=== PATIENT | female | born 1980 | race American Indian/Alaskan Native ===

== ENCOUNTER 2018-01-01 08:04 | Day surgery (SDC) | payer MEDICAID, OTHER ==
[~2018-01-01 08:04] MED LIST: Bupivacaine 0.5%/EPINEPHrine 1:200,000 10 ML SDV ONE; Lactated Ringers 1,000 ML IV SCH; Lidocaine 1% 30 ML SDV ONE; Sodium Chloride 0.9% 10 ML Syringe FLUSH PRN; ceFAZolin 1 GM in Premix Bag 1 BAG IV ONE
[2018-01-01] MEDS ORDERED: Propofol 1,000 MG/100 ML SDV IV ONE (08:05)
[2018-01-01] MEDS ORDERED: fentaNYL 100 MCG/2 ML SDV IV ONE (08:05)
[2018-01-01] MEDS ORDERED: Midazolam 1 MG/ML 2 ML SDV IV ONE (08:05)
[2018-01-01] MEDS ORDERED: Ketorolac 30 MG/ML SDV IVPUSH ONE (08:05)
[2018-01-01 08:39] LABS: CHLORIDE,CL 101 mmol/L (101-111); SODIUM,NA 135 mmol/L (135-145)
[2018-01-01] MEDS ORDERED: Bupivacaine 0.5%/EPINEPHrine 1:200,000 10 ML SDV INJECT ONE ×2 (09:28→10:30)
[2018-01-01] MEDS ORDERED: Lidocaine 1% 30 ML SDV INJECT ONE ×2 (09:28→10:30)
[2018-01-01] MEDS ORDERED: Acetaminophen/oxyCODONE 325-5 MG Tab PO PRN (11:00)
--- NOTE | 2018-01-01 11:04 | PCM.OPNOTE ---
- General Post-Op/Procedure Note Date of Surgery/Procedure: 01/01/18 Operative Procedure(s): right foot first metatarsal bunionectomy with hardware Pre Op Diagnosis: right foot painful bunion Post-Op Diagnosis: tawanna Anesthesia Technique: Local, MAC Primary Surgeon: Sharmin Alva Anesthesia Provider: Jose Miguel Cardenas EBL in mLs: 5 Complications: none Condition: Good Free Text/Narrative:: Pt tolerated procedure well and was transported to recovery with vascular status intact to right foot. TT 56 mins. [place] 3.0 cannulated screws placed at first metatarsal. Well padded compression dressing applied.
[2018-01-01 13:02] VITALS: BP 144/74
--- NOTE | 2018-01-01 16:44 | OR ---
DATE: 01/01/2018 PREOPERATIVE DIAGNOSIS: Right foot painful bunion. POSTOPERATIVE DIAGNOSIS: Right foot painful bunion. PROCEDURE PERFORMED: Right foot first metatarsal osteotomy/bunionectomy with hardware fixation. ANESTHESIA: Local MAC with preoperative local block of 10 mL 1:1 mixture 1% lidocaine plain and 0.5% Marcaine plain. TOURNIQUET TIME: 56 minutes. Pneumatic ankle tourniquet. ESTIMATED BLOOD LOSS: Minimal. SPECIMEN REMOVED: None. COMPLICATIONS: None. INDICATIONS: Saloni is a 37-year-old female, who presents to the clinic for bilateral foot pain, much worse on the right foot. She reports she has had very painful bunions for many years now, she has been seeing [facility] for the bunions for a few years and saw a doctor out there. He did give her wider shoes, bunion padding, toe spacers, and inserts with no relief. She works on her feet all day and the pain increases with being on her foot. She wants to go ahead with the surgical correction of the bunion. She is a diabetic. 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 The patient voiced good understanding of proposed procedure and possible complications and elects to have surgery at this time. DESCRIPTION OF PROCEDURE: The patient was taken to the operating room lying in the supine position. After adequate anesthesia induction as described above, the right foot was prepped and draped in the usual sterile fashion. A pneumatic ankle tourniquet was then inflated to 225 mmHg. Attention was then directed to the dorsum of the right foot first metatarsophalangeal joint where an approximately 5 cm linear incision was made. Sharp and blunt dissection were performed down to the level of the joint with care to gently retract all neurovascular bundles. An inverted L-capsulotomy was made and the capsule was reflected to expose the distal first metatarsal. A hypertrophic medial eminence was noted and resected with a sagittal saw. Blunt dissection was performed in the first interspace to the level of the fibular sesamoid and the adductor hallucis tendon was transected from its attachment due to the total being significantly tight at the lateral area. This was released. A sagittal saw was used to make a [place]-type osteotomy with a long dorsal arm angulated in a fashion that would allow maintenance of the length upon lateral translation of the capital fragment. The capital fragment was then transposed laterally approximately 7 mm and impacted to bring the hallux in a near rectus alignment. A K-wire from the 3.0 [place] cannulated screw set was used as temporary fixation x2. Two partially-threaded cannulated 3.0 [place] screws were then placed across the osteotomy site and a temporary fixation was removed. Fluoroscopy was used throughout this procedure to verify proper reduction of the bunion deformity and also proper screw fixation and placement. The osteotomy site was noted to be stable with valgus and varus forces applied with fluid range of motion to the first MTPJ, the first MTPJ looked healthy with no articular defects present. The surgical site was flushed with copious amounts of sterile saline. A medial capsulorrhaphy was performed, and capsular closure was completed with 3-0 Vicryl. Skin closure was completed with 4-0 nylon. The hallux was noted to be in near rectus alignment at this time. The area was then dressed with Xeroform to the incision site, fluffs, Webril, and an Jass wrap. She tolerated the procedure and anesthesia well and left the operating room for recovery with vital signs stable and in good condition with vascular status intact to the right foot as noted by immediate hyperemia to all digits upon deflation of the ankle tourniquet. Total tourniquet time was 56 minutes. She was placed in a Cam boot with crutches. She was then discharged home when she met hospital discharge requirements. [facility] /[id number]
--- NOTE | 2018-01-02 15:45 | EKG ---
01/01/2018 - SCOTTIE DE LA VEGA - A 12-lead EKG shows normal sinus rhythm with heart rate of 68, MT interval of . No significant ST elevation or ST depression noted on this 12-lead EKG. [facility] /[id number]
== END 2018-01-01 12:30 | disposition home or self-care (01) ==
LOC: DL.SDS 08:04
PROVIDERS: ATTEND Podiatrist
DX: M21.611 Bunion of right foot (principal); I10 Essential (primary) hypertension; K21.9 Gastro-esophageal reflux disease without esophagitis; E78.2 Mixed hyperlipidemia; E55.9 Vitamin D deficiency, unspecified; E11.40 Type 2 diabetes mellitus with diabetic neuropathy, unspecified; F32.9 Major depressive disorder, single episode, unspecified; Z87.891 Personal history of nicotine dependence; Z88.8 Allergy status to other drugs, medicaments and biological substances
CPT/HCPCS: 36415; 80048; 81025; 85025; C1713; J0690; J1885; J2250; J2704; J3010; J7120

== ENCOUNTER 2018-03-26 06:57 | Day surgery (SDC) | payer MEDICAID, OTHER ==
[~2018-03-26 06:57] MED LIST changes: +Bupivacaine 0.5% 30 ML SDV ONE; -Bupivacaine 0.5%/EPINEPHrine 1:200,000 10 ML SDV ONE; -ceFAZolin 1 GM in Premix Bag 1 BAG IV ONE
[2018-03-26] MEDS ORDERED: Bupivacaine 0.5% 30 ML SDV INJECT ONE ×5 (06:58→09:57)
[2018-03-26] MEDS ORDERED: Propofol 200 MG/20 ML SDV IV ONE (06:58)
[2018-03-26] MEDS ORDERED: Lidocaine 1% 30 ML SDV INJECT ONE ×5 (06:58→09:57)
[2018-03-26] MEDS ORDERED: fentaNYL 100 MCG/2 ML SDV IV ONE (06:58)
[2018-03-26] MEDS ORDERED: Midazolam 1 MG/ML 2 ML SDV IV ONE (06:58)
[2018-03-26] MEDS ORDERED: Ondansetron 4 MG/2 ML SDV IV ONE (06:58)
[2018-03-26] MEDS ORDERED: ceFAZolin 1 GM in Premix Bag 1 BAG IV ONE (07:30)
[2018-03-26] MEDS ORDERED: ceFAZolin 2 GM in Premix Bag 1 BAG IV ONE (08:04)
[2018-03-26] MEDS ORDERED: Acetaminophen/oxyCODONE 325-5 MG Tab PO PRN (10:12)
--- NOTE | 2018-03-26 10:14 | PCM.OPNOTE ---
- General Post-Op/Procedure Note Date of Surgery/Procedure: 03/26/18 Operative Procedure(s): left foot first metatarsal osteotomy/bunionectomy Pre Op Diagnosis: left foot painful bunion Post-Op Diagnosis: tawanna Anesthesia Technique: Local, MAC Primary Surgeon: Sharmin Alva Anesthesia Provider: Bryce Weaver EBL in mLs: 5 Complications: none Condition: Good Free Text/Narrative:: Pt tolerated procedure well and was transported to recovery with vascular status intact to left foot. TT 54 mins. Well padded compression dressing applied. [place] 3.0 cannulated screws placed.
[2018-03-26 11:10] VITALS: BP 141/77
--- NOTE | 2018-03-26 13:08 | OR ---
DATE: 03/26/2018 PREOPERATIVE DIAGNOSIS: Painful left foot bunion deformity. POSTOPERATIVE DIAGNOSIS: Painful left foot bunion deformity. PROCEDURE PERFORMED: Left foot first metatarsal osteotomy/bunionectomy with hardware fixation. ANESTHESIA: Local MAC with preoperative local block of 10 mL 1:1 mixture of 1% lidocaine plain and 0.5% Marcaine plain. TOURNIQUET TIME: Pneumatic ankle tourniquet, 54 minutes. ESTIMATED BLOOD LOSS: Minimal. SPECIMEN: None. COMPLICATIONS: None. INDICATIONS: Saloni is a 38-year-old female who presents for painful bunion deformity on her left foot. I had recently done a bunionectomy on her right foot. She states that foot is completely healed and doing great. She is back to walking in regular shoes without any pain or swelling. She would like to have the same procedure done on her left foot. That foot has been painful for a few years now and gradually worsening. She has exhausted conservative options for this. She is diabetic. X-rays brought in on a disk from [facility] reveal left foot medially deviated first metatarsal with IM angle of approximately 11 degrees. She does have a significant metatarsus adductus angle. The patient voiced good understanding of the proposed procedure and possible complications and elects to have surgery at this time. DESCRIPTION OF PROCEDURE: The patient was taken to the operating room lying in supine position. After adequate anesthesia induction as described above, the left foot was prepped and draped in the usual sterile fashion. A pneumatic ankle tourniquet was inflated to 225 mmHg. Attention was then directed to the dorsal aspect of the left first metatarsophalangeal joint, where an approximately 6 cm linear incision was made. Sharp and blunt dissection was performed down to the level of the joint capsule with care to gently retract all neurovascular bundles. An inverted L capsulotomy was made, and the capsule was reflected to expose the distal first metatarsal. A hypertrophic medial eminence was noted at this time and was resected with a sagittal saw. The sagittal saw was then used to make a chev[place]-type osteotomy angulated in a fashion that would allow plantar displacement and maintenance of length with lateral transposition of the capital fragment. The capital fragment was then laterally transposed 6 mm and impacted to bring the hallux in a near rectus alignment. K-wires from the Filtr[place] cannulated screw set were used as temporary fixation. Two partially- threaded cannulated 3.0 [place] screws were then placed across the osteotomy site. The temporary fixation was removed. The osteotomy site was noted to be stable with axial, valgus, and varus forces applied with fluid range of motion of the first MTPJ. The first MTPJ appeared healthy without any defects present. Fluoroscopy was used throughout the procedure to verify adequate reduction of the deformity as well as proper placement of screws and screw fixation. The area was then irrigated with copious amounts of sterile saline. A medial capsulorrhaphy was performed. Capsular closure was completed with 2-0 Vicryl, and skin closure was completed with 4-0 nylon. The hallux was noted to be in a near rectus alignment at this time. The area was dressed with Xeroform to the incision site, fluffs, Webril, and an Jass wrap. She was placed on crutches and a Cam boot. She tolerated the procedure well and left the operating room for recovery with vital signs stable in good condition with vascular status intact to the left foot as noted by immediate hyperemia to all digits upon deflation of the ankle tourniquet. The patient was then discharged home when she met hospital discharge requirements. [facility] /[id number]
== END 2018-03-26 11:25 | disposition home or self-care (01) ==
LOC: DL.SDS 06:57
PROVIDERS: ATTEND Podiatrist
DX: M21.612 Bunion of left foot (principal); M20.62 Acquired deformities of toe(s), unspecified, left foot; I10 Essential (primary) hypertension; K21.9 Gastro-esophageal reflux disease without esophagitis; G47.00 Insomnia, unspecified; E11.42 Type 2 diabetes mellitus with diabetic polyneuropathy; F32.9 Major depressive disorder, single episode, unspecified; E78.2 Mixed hyperlipidemia; H52.13 Myopia, bilateral; H52.223 Regular astigmatism, bilateral; E55.9 Vitamin D deficiency, unspecified; Z79.4 Long term (current) use of insulin; Z88.8 Allergy status to other drugs, medicaments and biological substances; Z87.891 Personal history of nicotine dependence
CPT/HCPCS: 28296; 82962; C1713; J0690; J2250; J2405; J2704; J3010; J7120

== ENCOUNTER 2019-07-27 06:25 | Day surgery (SDC) | payer OTHER ==
[~2019-07-27 06:25] MED LIST changes: -Bupivacaine 0.5% 30 ML SDV ONE; -Lactated Ringers 1,000 ML IV SCH; -Lidocaine 1% 30 ML SDV ONE; +Midazolam 1 MG/ML 2 ML SDV ONE; +fentaNYL 100 MCG/2 ML SDV ONE
[2019-07-27] MEDS ORDERED: Midazolam 1 MG/ML 2 ML SDV IV ONE (06:26)
[2019-07-27] MEDS ORDERED: fentaNYL 100 MCG/2 ML SDV IV ONE (06:26)
[2019-07-27] MEDS: Dextrose 5%-0.45% NaCl 1,000 ML IV SCH (07:09)
[2019-07-27] MEDS: fentaNYL 100 MCG/2 ML SDV IV ONE ×2 (07:16→07:17)
[2019-07-27] MEDS: Midazolam 1 MG/ML 2 ML SDV IV ONE ×2 (07:17→07:18)
[2019-07-27 09:22] VITALS: BP 132/60
--- NOTE | 2019-07-27 12:48 | OR ---
DATE: 07/27/2019 PROCEDURES: Esophagogastroduodenoscopy and multiple pinch biopsies. INSTRUMENT USED: GIF-HQ190 Olympus video panendoscope. PREMEDICATIONS: Fentanyl 1 mcg intravenous, Versed 2 mg intravenous, nasal O2 cannula. The procedure was done with pulse oximetry, BP recording, and landscape horticulture instructor. INDICATION: Diabetic patient, on multiple medications including PPI long-term with persistent upper abdominal pain and dyspepsia, unexplained, not responsive to present measures. Esophagogastroduodenoscopy is performed for detection of any active erosive lesions, [place] esophagus and/or malignancy also under consideration, H. pylori status to be determined, endoscopic hemostasis therapy if needed. PROCEDURE IN DETAIL: The scope was passed with ease. Adequate visualization of the esophagus was made from proximal to distal areas. No upper esophageal lesions identified. No distal esophageal stricture. No uphill or downhill esophageal varices. No Rosette-Villeda tear. No evidence of erosive esophagitis by [place] criteria. No esophageal polyp or tumor mass identified. Z-line was seen at around 39 cm distal to the oral verge, configuration consistent with grade 1 by ZAP classification. No esophageal polyps or tumor masses identified. Gastric fundus examination by retroflexion showed no polypoid lesions. No proximal gastric varices noted. No gastric ulcer, malignant mass, or vascular ectasia identified. Duodenal bulb showed no ulcer. Visualized second part of the duodenum was unremarkable. Multiple pinch biopsies were taken from the gastric antrum and proximal body and sent for PyloriTek test for H. pylori, and if negative in an hour, the tissue is to be sent for histopathology. No bleeding was noted from any of the visualized areas at the completion of examination. Photographs were taken of the duodenal bulb, gastric antrum, fundus, and distal esophagus. IMPRESSION: Normal study. The patient tolerated the procedure well. [facility] /[id number]
--- NOTE | 2019-07-27 13:51 | LETTER ---
07/27/2019 RE: SCOTTIE DE LA VEGA : 1980 [address] [facility] [address] [place] [address] Vargas: Ms. Scottie Oakes had esophagogastroduodenoscopy done this morning and she tolerated the procedure well. I herewith send a copy of the endoscopy note and photographs for your review. Thank you. Sincerely, [facility] /[id number]
== END 2019-07-27 09:25 | disposition home or self-care (01) ==
LOC: DL.ENDO 06:25
PROVIDERS: ATTEND Internal Medicine Gastroenterology
DX: K29.50 Unspecified chronic gastritis without bleeding (principal); I10 Essential (primary) hypertension; E11.9 Type 2 diabetes mellitus without complications; E78.5 Hyperlipidemia, unspecified; E55.9 Vitamin D deficiency, unspecified; E66.01 Morbid (severe) obesity due to excess calories; F32.9 Major depressive disorder, single episode, unspecified; G47.00 Insomnia, unspecified; Z79.899 Other long term (current) drug therapy; Z68.43 Body mass index [BMI] 50.0-59.9, adult
CPT/HCPCS: 43239; 87077; J2250; J3010; J7042

== ENCOUNTER 2020-08-15 00:05 | Emergency (ER) | payer OTHER ==
[2020-08-15 00:24] VITALS: BP 172/89; PULSE 100
--- NOTE | 2020-08-15 00:42 | EDM.PDOC ---
ED HPI GENERAL MEDICAL PROBLEM - General Chief Complaint: Upper Extremity Injury/Pain Stated Complaint: SHOULDERS DOWN BOTH SIDES SWELLING HURTS Time Seen by Provider: 08/15/20 00:20 Source of Information: Reports: Patient History Limitations: Reports: No Limitations - History of Present Illness INITIAL COMMENTS - FREE TEXT/NARRATIVE: ED with c/o bilateral shoulders arms to wrists, Admits moving and carrying heavy boxes this weekend cleaning out a basement. Feel hands swollen. No fever chills or other body aches. Admits does not normally do that type of activity level. Today, mostly in bed. Bilateral Arm Pain Score (Numeric/FACES): 7 - Related Data Allergies Allergy/AdvReac Type Severity Reaction Status Date / Time lisinopril AdvReac Cough Verified 08/15/20 00:24 Home Meds: Home Meds Aspirin [Pat Chewable Aspirin] 81 mg PO DAILY 12/31/14 [History] Insulin Aspart [NovoLOG] 35 units SQ TID 12/31/14 [History] Insulin Detemir [Levemir] 50 units SQ BID 12/31/14 [History] Losartan [Cozaar] 25 mg PO DAILY 12/31/14 [History] metFORMIN [Glucophage XR] 1,000 mg PO BID 12/31/14 [History] Cholecalciferol (Vitamin D3) [Vitamin D3] 1,000 units PO DAILY 12/30/17 [History] Ibuprofen 600 mg PO QID PRN 12/31/17 [History] Omeprazole 20 mg PO DAILY 07/23/19 [History] glipiZIDE [Glucotrol XL] 2.5 mg PO DAILY 07/23/19 [History] Past Medical History - Past Health History Medical/Surgical History: Denies Medical/Surgical History HEENT History: Reports: None, Impaired Vision Other HEENT History: bilateral myopia, astigmatism Cardiovascular History: Reports: High Cholesterol, Hypertension Respiratory History: Reports: None Gastrointestinal History: Reports: GERD, Other (See Below) Other Gastrointestinal History: LACTOSE INTOLERANCE Genitourinary History: Reports: None PRODUCTION GRADER History: Reports: None, Spontaneous Musculoskeletal History: Reports: Arthritis Other Musculoskeletal History: tenosunovitis of wrist, bilateral s/p carpal tunnel release Neurological History: Reports: Neuropathy, Diabetic Other Neuro History: insomnia Psychiatric History: Reports: Depression Endocrine/Metabolic History: Reports: Diabetes, Type II, Obesity/BMI 30+, Vitamin D Deficiency Hematologic History: Reports: None Immunologic History: Reports: None Oncologic (Cancer) History: Reports: None Dermatologic History: Reports: Eczema Other Dermatologic History: dry skin dermatitis - Infectious Disease History Infectious Disease History: Reports: Chicken Pox - Past Surgical History Head Surgeries/Procedures: Reports: None HEENT Surgical History: Reports: None Cardiovascular Surgical History: Reports: None Respiratory Surgical History: Reports: None GI Surgical History: Reports: Cholecystectomy, EGD Female Surgical History: Reports: None Musculoskeletal Surgical History: Reports: Arthroscopic Knee, Carpal Tunnel Social & Family History - Family History Family Medical History: Noncontributory - Tobacco Use Smoking Status *Q: Never Smoker Second Hand Smoke Exposure: No - Caffeine Use Caffeine Use: Reports: Energy Drinks Caffeine Use Comment: 2 ENERGY DRINKS DAILY. RARE SODA - Recreational Drug Use Recreational Drug Use: No - Living Situation & Occupation Living situation: Reports: with Significant Other Occupation: Unemployed Review of Systems - Review of Systems Review Of Systems: See Below ED EXAM, GENERAL - Physical Exam Exam: See Below Exam Limited By: No Limitations General Appearance: Alert, Mild Distress, Obese Eye Exam: Bilateral Eye: EOMI Ears: Normal External Exam Nose: Normal Inspection Throat/Mouth: Normal Inspection Head: Atraumatic, Normocephalic Neck: Normal Inspection, Full Range of Motion Respiratory/Chest: No Respiratory Distress, Lungs Clear, Normal Breath Sounds Cardiovascular: Regular Rate, Rhythm Extremities: Other (generalized tenderness upper extremities bilaterally greater with palpation ofver shoulders and elbow. No notable swelling to hands. ) Psychiatric: Flat Affect Skin Exam: Warm, Dry, Intact, Normal Color. No: Increased Warmth, Rash Course - Vital Signs Last Recorded V/S: Last Vital Signs Temp 98.6 F 08/15/20 00:20 Pulse 100 08/15/20 00:20 Resp 18 08/15/20 00:20 BP 172/89 H 08/15/20 00:20 Pulse Ox 97 08/15/20 00:20 Departure - Departure Time of Disposition: 00:38 Disposition: Home, Self-Care 01 Condition: Good Clinical Impression: Muscle strain - Discharge Information *PRESCRIPTION DRUG MONITORING PROGRAM REVIEWED*: No *COPY OF PRESCRIPTION DRUG MONITORING REPORT IN PATIENT TOMY: No Instructions: Shoulder Pain, [id number], Climber's Elbow Referrals: PCP,None [Primary Care Provider] - Forms: ED Department Discharge, ED Return to Work/School Form Additional Instructions: alternate tylenol and ibuprofen every 4 hours as needed icy hot / bengay as needed clinic follow up if not improving Sepsis Event Note (ED) - Evaluation Sepsis Screening Result: No Definite Risk - Focused Exam Vital Signs: Vital Signs Temp Pulse Resp BP Pulse Ox 08/15/20 00:20 98.6 F 100 18 172/89 H 97
== END 2020-08-15 00:44 | disposition home or self-care (01) ==
LOC: DL.ED 00:05
DX: S46.912A Strain of unspecified muscle, fascia and tendon at shoulder and upper arm level, left arm, initial encounter (principal); S46.911A Strain of unspecified muscle, fascia and tendon at shoulder and upper arm level, right arm, initial encounter; I10 Essential (primary) hypertension; K21.9 Gastro-esophageal reflux disease without esophagitis; M19.90 Unspecified osteoarthritis, unspecified site; E11.40 Type 2 diabetes mellitus with diabetic neuropathy, unspecified; E66.9 Obesity, unspecified; Z68.43 Body mass index [BMI] 50.0-59.9, adult; Z88.8 Allergy status to other drugs, medicaments and biological substances; Z79.82 Long term (current) use of aspirin; Z79.4 Long term (current) use of insulin; Z79.899 Other long term (current) drug therapy; X50.9XXA Other and unspecified overexertion or strenuous movements or postures, initial encounter
CPT/HCPCS: 99282; 99283

== ENCOUNTER 2023-05-09 05:53 | Day surgery (SDC) | payer BC, OTHER ==
[2023-05-09] MEDS ORDERED: Sodium Chloride 0.9% 10 ML Syringe FLUSH PRN (06:00)
[2023-05-09] MEDS ORDERED: Dextrose 5%-0.45% NaCl 1,000 ML IV SCH (06:00)
[2023-05-09] MEDS ORDERED: fentaNYL 100 MCG/2 ML SDV ONE (06:12)
[2023-05-09] MEDS ORDERED: Midazolam 1 MG/ML 2 ML SDV ONE (06:12)
[2023-05-09] MEDS ORDERED: fentaNYL 100 MCG/2 ML SDV IV ONE ×2 (07:47)
[2023-05-09] MEDS ORDERED: Midazolam 1 MG/ML 2 ML SDV IV ONE ×6 (07:47→07:53)
[2023-05-09 10:06] VITALS: BP 156/60; PULSE 57
== END 2023-05-09 09:45 | disposition home or self-care (01) ==
LOC: DL.ENDO 05:53
PROVIDERS: ATTEND Internal Medicine Gastroenterology
DX: Z12.11 Encounter for screening for malignant neoplasm of colon (principal); E11.9 Type 2 diabetes mellitus without complications; I10 Essential (primary) hypertension; E78.5 Hyperlipidemia, unspecified; K21.9 Gastro-esophageal reflux disease without esophagitis; G47.00 Insomnia, unspecified; E66.09 Other obesity due to excess calories; Z98.890 Other specified postprocedural states; Z90.49 Acquired absence of other specified parts of digestive tract; Z68.42 Body mass index [BMI] 45.0-49.9, adult; Z88.8 Allergy status to other drugs, medicaments and biological substances
CPT/HCPCS: 45378; J2250; J3010; J7042